=== PATIENT | female | born 1940 | race Caucasian/White ===

== ENCOUNTER 2022-08-18 07:04 | Observation (INO) | payer OTHER ==
[2022-08-12 14:55] LABS: Absolute Lymphocytes (CBC) 1.8 K/uL (0.7-4.9); Hematocrit 39.7 % (36.0-45.0); MCV 93.9 fL (80-100); MPV 7.8 fL (7.6-11.3); RBC Red Blood Cell Count 4.23 M/uL (3.86-4.86)
[2022-08-12 14:59] LABS: Protime INR 0.98
[2022-08-12 15:08] LABS: SARS-CoV-2 Antigen Rapid Res Negative (Negative)
[2022-08-12 15:17] LABS: Specific Gravity 1.006 (1.005-1.030); Urine Bilirubin NEGATIVE (Negative); Urine Blood Negative (Negative); Urine Clarity Clear (Clear); Urine Color Colorless (Yellow); Urine Glucose NEGATIVE (Negative); Urine Protein NEGATIVE (Negative); Urine Urobilinogen Normal (Normal)
[2022-08-12 15:18] LABS: Potassium 3.8 mmol/L (3.5-5.1)
[2022-08-18] MEDS ORDERED: Ringers Lactate 1,000 ML IV ONE ×2 (07:49→10:47)
[2022-08-18] MEDS ORDERED: FENTANYL CITR 100 MCG/2 ML ONE ×2 (08:07→13:35)
[2022-08-18] MEDS ORDERED: propofoL 200 MG/20 ML VIAL IV ONE (08:07)
[2022-08-18] MEDS ORDERED: ROCURONIUM 50 MG/5 ML VIAL IV ONE (08:08)
[2022-08-18] MEDS ORDERED: ONDANSETRON 4 MG/2 ML VIAL ONE (08:08)
[2022-08-18] MEDS ORDERED: LIDOCAINE 2% MPF 5 ML VIAL ONE (08:08)
[2022-08-18] MEDS ORDERED: NA CHLORIDE 0.9% 100 ML ONE (08:48)
[2022-08-18] MEDS ORDERED: CEFAZOLIN SODIUM 1 GM/VIAL ONE (08:48)
[2022-08-18] MEDS: VASOPRESSIN 20 UNIT/ML VIAL ONE ×4 (08:48→09:37)
[2022-08-18] MEDS: CEFAZOLIN SODIUM 2 GM/VIAL ONE ×2 (08:48→08:58)
[2022-08-18] MEDS ORDERED: LIDOCAINE 1% W/EPI 1:100,000 50 ML MDV ONE (08:48)
[2022-08-18] MEDS ORDERED: SCOPOLAMINE HYDROBROMIDE PATCH TD ONE ×2 (08:55→08:59)
[2022-08-18] MEDS ORDERED: dexAMETHasone 4 MG/ML VIAL ONE (09:16)
[2022-08-18] MEDS ORDERED: EPHEDRINE SULF 50 MG/ML VIAL ONE (09:26)
[2022-08-18] MEDS ORDERED: KETOROLAC 30 MG/ML INJ ONE (12:25)
[2022-08-18] MEDS ORDERED: NEOSTIGMINE 1 MG/ML -5 ML ONE (12:27)
[2022-08-18] MEDS ORDERED: GLYCOPYRROLATE 0.2 MG/ML SYR ONE (12:27)
[2022-08-18] MEDS ORDERED: CELECOXIB 100 MG CAPSULE PO PRN (12:51)
[2022-08-18] MEDS ORDERED: ACETAMINOPHEN 500 MG TAB PO PRN ×2 (12:51→12:52)
[2022-08-18] MEDS ORDERED: PSEUDOEPHEDRINE 30 MG TAB PO PRN (12:51)
[2022-08-18] MEDS ORDERED: PROMETHAZINE INJ 25 MG/ML AMP IV PRN (12:52)
[2022-08-18] MEDS ORDERED: ONDANSETRON 4 MG/2 ML VIAL IV PRN (12:52)
--- NOTE | 2022-08-18 13:03 | P.BOP ---
Preoperative diagnosis: stage 3 uterovaginal prolapse, BARBARA Postoperative diagnosis: same, posterior enterocele Primary procedure: Ant b/l sslf cervico-colpopexy, graft aug. anterior+posterior repairs Secondary procedure: TO-MUS, cysto, posterior enterocele repair Return To Factory Clerk: Miley Jaramillo (cysto neg, patent jody ureters) Estimated blood loss: 150 Specimen: none Findings: +1/+3/0/6/mod/8/0/0/+1, graft in both ant/post w/sslf cervico- colpopexy, Anesthesia: General Complications: None Drain(s): Urinary catheter Implants: colpoplast biologic graft 8x6 --2 of these and TVT-O Fluids & blood products: 1300 LR, UO 200 Transferred to: Recovery Room Condition: Good
--- OUTSIDE RECORDS SUMMARY | 2022-08-18 13:20 | XMS REPORT | Continuity of Care Document ---
:1940 Author Organization [facility] t Address [address] [place] [address] Care Team Providers Name Role Phone YASMEEN MOMIN Attending Clinician Unavailable locumens Attending Clinician Unavailable LORI MATHEW Attending Clinician Unavailable SEYMOUR DA SILVA Attending Clinician Unavailable locumens Admitting Clinician Unavailable Payers Payer Name Policy Type Policy Number Effective Date Expiration Date S saad [facility] [id number] 2021 [facility] 00:00:00 (MEDICARE REPLACEMENT/ADVANTA GE - PPO) Problems Condition Condition Condition Status Onset Resolution Last Treating Co mments Source Name Details Category Date Date Treatment Clinician Date Closed Closed Problem Active [place] fracture Fracture da of distal of Distal Medi damari end of End of Group radius Radius Closed Closed Problem Active [place] extraartic Extraartic da ular ular Medical fracture Fracture Group of distal of Distal radius Radius Allergies, Adverse Reactions, Alerts Allergy Allergy Status Severity Reaction(s) Onset Inactive Treating Comm ents Source Name Type Date Date Clinician Compazin Allergy Active Other [place] e to da substanc Medical e Group Social History Smoking Status Start Date Stop Date Source Never Smoker [facility] Medications Ordered Filled Start Stop Current Ordering Indication Dosage Frequency Signature Comments Components Source Medication Medication Date Date Medication? Clinician (SIG) Name Name BinaxNOW BinaxNOW No BinaxNOW [place] COVID-19 Ag COVID-19 Ag COVID-19 da Self Test Self Test Ag Self Me dical kit Use as kit Use as Test kit Group Directed on Directed on Use as the Package the Package Directed on the Package celecoxib celecoxib No celecoxib [place] 200 mg 200 mg 200 mg da capsule capsule capsule Medica l TAKE 1 TAKE 1 TAKE 1 Group CAPSULE BY CAPSULE BY CAPSULE BY MOUTH ONCE MOUTH ONCE MOUTH ONCE DAILY DAILY DAILY lisinopril lisinopril No lisinopril [place] 20 mg 20 mg 20 mg da tablet TAKE tablet TAKE tablet Medical 1 TABLET BY 1 TABLET BY TAKE 1 Group MOUTH ONCE MOUTH ONCE TABLET BY DAILY DAILY MOUTH ONCE DAILY montelukast montelukast No montelukas [place] 10 mg 10 mg t 10 mg da tablet TAKE tablet TAKE tablet Medical 1 TABLET BY 1 TABLET BY TAKE 1 Group MOUTH ONCE MOUTH ONCE TABLET BY DAILY DAILY MOUTH ONCE DAILY nitrofurant nitrofurant No nitrofuran [place] oin oin toin da monohydrate monohydrate monohydrat Medical /macrocryst /macrocryst e/macrocry Group als 100 mg als 100 mg stals 100 capsule capsule mg capsule TAKE 1 TAKE 1 TAKE 1 CAPSULE BY CAPSULE BY CAPSULE BY MOUTH TWICE MOUTH TWICE MOUTH DAILY DAILY TWICE DAILY oxybutynin oxybutynin No oxybutynin [place] chloride ER chloride ER chloride da 15 mg 15 mg ER 15 mg Medical tablet,exte tablet,exte tablet,ext Group nded nded ended release 24 release 24 release 24 hr TAKE 1 hr TAKE 1 hr TAKE 1 TABLET BY TABLET BY TABLET BY MOUTH ONCE MOUTH ONCE MOUTH ONCE DAILY DAILY DAILY Vital Signs Vital Name Observation Time Observation Value Comments Source BP Diastolic 2022-03-19 00:00:00 78 mm[Hg] [facility] Height 2022-03-19 00:00:00 63 [in_i] [facility] BMI (Body Mass 2022-03-19 00:00:00 17.5 kg/m2 [facility] Medical Index) Group BP Systolic 2022-03-19 00:00:00 133 mm[facility]Hg[facility] Body Weight 2022-03-19 00:00:00 98.8 [facility]lb_av[facility] Procedures Procedure Date / Time Performed Performing Clinician Glo e Removal of Tonsils [facility] Plan of Care Planned Activity Planned Date Details Comments Source Diagnostic Test 2022-03-19 urinalysis, Ernesto Woo dical Pending 00:00:00 dipstick [code = Group urinalysis, dipstick] Encounters Start End Encounter Admission Attending Care Care Encounter Source Date/Time Date/Time Type Type Clinicians Facility Department ID 2022-04-30 2022-04-30 Outpatient NICHOLE MOMIN [facility] [id number] [place] 12:59:00 12:59:00 YASMEEN -[id number] [facility] 2022-03-19 2022-03-19 Outpatient locumens [facility] 2021 [place] 00:00:00 00:00:00 [id number] [facility] 2022-03-19 2022-03-19 Myesha [facility] [place] - [id number] [facility] 00:00:00 00:00:00 Discovery conchita Chavez [facility]: [address], [place] [address] , Ph. [phone] 2017-06-07 2017-06-07 Outpatient NICHOLE MOMIN, [facility] [id number] [place] 08:53:00 08:53:00 YASMEEN -[id number] [facility] 2016-05-26 2016-05-26 Outpatient locumens [facility] 2015 [place] 00:00:00 00:00:00 [id number] [facility] 2013-11-26 2013-11-26 Emergency ER MATHEW, [facility] [id number] [place] 15:58:00 17:35:00 LORI -[id number] [facility] 2008-03-01 2008-03-01 Outpatient NICHOLE DA SILVA, [facility] [id number] [place] 08:59:00 08:59:00 SEYMOUR -[id number] [facility] Results Test Description Test Time Test Comments Results Result Comments Source Urinalysis macro (dipstick) panel - Urine 2022-03-19 15:04:2 7 Test Item Value Reference Range Interpretation Comme nts Leukocytes (test code = Leukocytes) Negative Nitrite (test code = Nitrite) negative Urobilinogen (test code = Urobilinogen) .2 Protein (test code = Protein) Negative pH (test code = pH) 6.5 Blood (test code = Blood) Negative Specific [place] (test code = Specific [place]) 1.015 Ketone (test code = Ketone) Negative Bilirubin (test code = Bilirubin) Negative Glucose (test code = Glucose) Negative Appearance (test code = Appearance) Slightly Cloudy Color (test code = Color) Yellow [facility]
[2022-08-18 14:24] VITALS: BMI 16.9
[2022-08-18] MEDS ORDERED: INFLUENZA VACCINE (for 6+ mo) 0.5 ML DOSE IMVAC ONE (16:00)
[2022-08-18] MEDS: Ringers Lactate 1,000 ML IV SCH (18:02)
[2022-08-18] MEDS: MORPHINE 2 MG/ML SYR IV PRN ×2 (18:03→22:25)
[2022-08-18] MEDS ORDERED: lisinopriL 20 MG TAB PO SCH (21:00)
[2022-08-18] MEDS ORDERED: MONTELUKAST 10 MG TAB PO SCH (21:00)
[2022-08-19] MEDS: Ringers Lactate 1,000 ML IV SCH ×2 (02:18→11:01)
[2022-08-19] MEDS: MORPHINE 2 MG/ML SYR IV PRN ×2 (06:14→11:00)
[2022-08-19 06:55] LABS: Absolute Lymphocytes (CBC) 1.7 K/uL (0.7-4.9); Hematocrit 30.2 % (36.0-45.0); Lymphocytes % 20.6 % (15.3-44.8); MCV 94.5 fL (80-100); MPV 7.6 fL (7.6-11.3); RBC Red Blood Cell Count 3.19 M/uL (3.86-4.86)
[2022-08-19] MEDS ORDERED: ASCORBIC ACID 500 MG TABLET PO SCH (09:00)
[2022-08-19 11:27] VITALS: O2SAT 96
[2022-08-19 12:37] VITALS: BP 114/52; TEMP 99.2
[2022-08-19] MEDS ORDERED: HOME MED 1 EA UNK (Estradiol [Estrace] 42.5 GM Cream.Appl) VAG SCH (17:00)
--- NOTE | 2022-08-21 01:24 | OP ---
Date of Procedure: 08/18/2022 Surgeon: Sneha Bloom MD Airport Ramp Agent: Miley Donohue. Preoperative Diagnoses: Stage III uterovaginal prolapse and stress urinary incontinence. Postoperative Diagnoses: Stage III uterovaginal prolapse, stress urinary incontinence, and posterior enterocele. Procedures Performed: Anterior bilateral sacrospinous ligament fixation, cervical colpopexy, graft a ugmented anterior repair and graft augmented posterior repairs, posterior enterocele repair, transobt urator mid urethral sling, and cystoscopy. Estimated Blood Loss: 150. Specimens: None. Complications: None. Drains: Prado catheter and vaginal packing. Fluids: 1300. Urine Output: 200. Implants: Coloplast biologic graft 8 x 6 x2, one of this in the anterior and one in the posterior co mpartment and TVT-O. Condition: Stable. Findings: POP-Q +1 +306, moderate 800 +1. Graft in the both anterior and posterior compartments wit h sacrospinous fixation, cervical colpopexy to the anterior wall. Cystoscopy was normal. Both ureters were patent. No graft or foreign body in the bladder. There wa s a satisfactory excellent elevation of both the anterior and posterior lee and the posterior forni x. Indications: The patient is an 82-year-old female with significant prolapse symptoms who was seen by her PA in [place] and felt like her bladder emptying was difficult due to her bulge. Sometimes had cramping with the bulge. States that her bladder issues have been present during her both pregnanci es and over the last 2-1/2 years, she has noticed an increasing bulge and has increased progressively over time leading to obstruction, to hygiene, and voiding as well. She has had 2 bladder infections and her urinary frequency during the day and nighttime have become significantly impair[facility], because she has a very active lifestyle physically as well. So she was assessed in the offi ce. She underwent an ultrasound. Urine testing for infection was negative. Then she had cystoscopy urodynamics. Her postvoid residual was slightly higher. After all these were done, she had a medic al clearance that was needed and once this was done, we sat down and had conversations about differen t types of options for treatment including a pessary that is a nonmedical management and surgery, eit her vaginal or laparoscopic with or without preservation of the uterus. After having discussed all t his and understanding all the benefits and risks of all the different alternatives, the patient wante d to proceed with a vaginal repair with uterine preservation as her uterus was completely unremarkabl e without any evidence of cancer and there were no adnexal masses. The only remarkable abnormal finding on her urodynamics was her postvoid residual that was up to 200. Decent capacity, definitely prolapse impacting her bladder emptying. Procedure In Detail: Once she was consented, she was brought to the hospital and re-consented in the morning. Her daughter was by her bedside and reviewed all the postoperative instructions including rest, which she had a tough time compromising with, but she completely understands the value of this and for prevention of recurrence. She was then taken back to the OR. 2 g of Ancef was given. SCDs were placed. A time-out was done. General anesthesia was given. She was placed in dorsal lithotomy position using Rigo stirrups. Abdomen was prepped with ChloraPrep and vulva, vagina, and perineum with Betadine. She was draped in a sterile fashion. Then Prado was placed to drain the bladder and clamped with a Ana and retracted superiorly. A self-retracting retractor was placed and the positi oning was done with the help of the needle extenders. Once this was done, the anterior wall was gras ped with an Allis clamp at the ureterovesical junction and then the uterus anteriorly. After dilute vasopressin was injected in the midline and laterally, a 15 blade was used for a midline incision and this incision was extended both superiorly and inferiorly all the way with Metzenbaum scissors and d issection was carried to the paravaginal spaces on both sides, the bladder after entering the space below the connective tissue. Then, bladder was dissected off the cervix and cervix was exp osed anteriorly and the transverse defect on the apex was identified. Fascia was still intact in the distal half. The margins of this were picked up after dissecting completely. Then the anterior ent erocele technically was closed with the help of a continuous running 2-0 Vicryl suture. Then lateral ly dissection was carried to the sacrospinous ligament after identifying the ischial spines, medial a nd posterior to the spine on both sides. Then sweeping lateral and superior to the ischial spine, th e white line was exposed on both sides. Then using the Capio device, Prolene sutures were taken on e ach sacrospinous ligament. The bite on the right side appeared to be slightly more medial than on th e left side, but there were satisfactory bites with Prolene and then PDS was used for the white line. 2-0 Prolene sutures were taken and placed on the cervix, 1 in the midline and 1 each on either side s of the cervix to lay the graft flat and keep it attached to the cervix and distally 2-0 PDS sutures x3 were placed, 1 in the center and 1 on either sides to attach the graft distally. An 8 x 5 x 6 gr aft was fashioned in a trapezoid fashion. Then 1 cm was cut for the cervix. As there was intact pre cervical fascia, I slightly shortened this vertical length to 4 cm then attached the Prolene sutures for the cervicopexy to the graft and the PDS sutures to the anterior precervical fascia right below t he UVJ. Once this was done in the center, then Prolene sutures were placed with a half edge to the p roximal and lateral ends and then these were tied down. Then, the PDS sutures were hooked onto the s ides of the graft in a proper place and they were tied down. There was an excellent lift of the ante rior wall apex and lateral lee. The vaginal epithelium was not trimmed and was closed with the hel p of a 2-0 Vicryl in a continuous running locked fashion. I then opened the posterior compartment by holding the hymenal remnants with the help of Allis clamps , injecting the posterior compartment in the perineum with dilute vasopressin. Saba-shaped incisi on was placed in the distal one third of the posterior wall and vaginal epithelium was dissected away from the connective tissue on the sides as well as superiorly. Then carefully dissecting and openin g up the enterocele, the large enterocele here in the rectovaginal septum was detached from the parac ervical ring in the posterior aspect. There was no way to take this back in a tension-free fashion a nd attach it especially since the level 1 has been lifted using the graft anteriorly. So the cervix was identified again and the fascia was identified in the pericervical ring. Dissection was carried on both sides to the ischial spine and the sacrospinous ligaments were dissected from the posterior a spect. Once the mid ligament was again identified with the sutures in place, then Capio was taken wi th Prolene sutures and the mid ligament sutures were placed on both sides, fascia in a Y-shaped graft with 8 cm from spine to spine, 3 cm in the anterior-posterior direction, and distally had only 3 cm width. It was a Y-shaped graft with just a slight short length and the stem. The distal rectovagina l septum was nicely isolated and visualized and demarcated. Then, the Prolene sutures were tied to t he lateral aspects of the graft and tied down with a half edge luis stitch to help the graft come i n apposition with the sacrospinous ligament. Once these were tied down, then the graft in the center was attached to the pericervical ring with the help of 3 PDS sutures, 2-0. Once these were tied franck n, I then went to the distal part of the rectovaginal septum and in a continuous running fashion with 2-0 PDS attached the distal connective tissue to the graft thereby creating a posterior wall that wa s well supported and attached to the pericervical ring. Once this was done, then the perineal body w as repaired with 2-0 Vicryl sutures and then 2-0 PDS was used to plicate the slight disruption in the connective tissue in the distal one third and once this was done, the posterior vaginal wall was sandi sed with the help of continuous running 2-[address] the way to the hymen and then perineum was repaired with the help of 2-0 Vicryl sutures interrupted x2 and then 3-0 Vicryl for closure in a subcutaneous and subcuticular fashion. Rectal exam was negative. No evidence of any trauma or forei gn body in the rectum. Allis clamps were placed in the mid urethral area and injected with dilute vasopressin. Mid urethral incision 1.5 cm was made with the help of a scalpel and 15 blade and dissected laterally with latera l obturator space and perforating obturator membrane on each side. The same tract was created wide e nough to lay the mesh flap in the center as well, and made sure that this was open and lying flat. R ing guide was placed, spike was passed hugging the inferior pubic ramus and exiting 2 cm lateral to t he groin fold on each side. The plastic dilators were retrieved and cut. The plastic sheath and mes h were held with Ana clamps, tensioning the center with Metzenbaum scissors appropriately and then sheaths were pulled out. The mesh trimmed flush with the skin and the graft was irrigated with antib iotic solution. It was appropriately tensioned and closed with the help of 3-0 Vicryl in a continuou s running fashion. Prado was removed. Cystoscopy was performed with 30-degree lens with normal sali ne. There were excellent jets of urine from both ureteric orifices. No evidence of any trauma or fo reign body. The base of the bladder trigone, area above the trigone dome, and lateral lee were all visualized and the urethra as well. Bladder was drained. Prado was replaced. Vaginal packing was placed. The patient was recovered from anesthesia and taken to the PACU in stable condition. Her fa luis daniel was debriefed about her procedure and she has a 1 week followup with us. Voiding trial in the danny. CHUY/JESSICAL Voice ID: [id number] Report ID: [id number]
== END 2022-08-19 14:30 | disposition home health service (06) ==
LOC: OR 07:04 → 4TH 12:52
PROVIDERS: ADMIT Obstetrics & Gynecology; ATTEND Obstetrics & Gynecology
PROC: 0UUG7JZ Supplement Vagina with Synthetic Substitute, Via Natural or Artificial Opening (ICD-10-PCS; 2022-08-18)
PROC: 0TSD0ZZ Reposition Urethra, Open Approach (ICD-10-PCS; 2022-08-18)
PROC: 0USG7ZZ Reposition Vagina, Via Natural or Artificial Opening (ICD-10-PCS; principal; 2022-08-18 08:30)
DX: N81.3 Complete uterovaginal prolapse (principal); N39.3 Stress incontinence (female) (male); I10 Essential (primary) hypertension; F41.9 Anxiety disorder, unspecified; F32.A Depression, unspecified; N95.2 Postmenopausal atrophic vaginitis; R39.14 Feeling of incomplete bladder emptying; R35.1 Nocturia
CPT/HCPCS: 85025 ×2; 80048; 36415 ×2; 86900; 86850; 85610; 86901; 85730; 81003; 94010; 87811; 57282; 57265; 57288; G0379; J2704; J1100; J2550; J2001; J3010 ×2; J2270 ×4; J2710; G0378 ×3; J7120 ×5; J2405; J0690